=== PATIENT | female | born 1990 | race American Indian/Alaskan Native ===

== ENCOUNTER 2023-10-24 17:09 | Inpatient (IN) ==
[2023-10-24 18:50] LABS: Hematocrit 38.5 % (35-45); Hemoglobin 11.9 g/dL (11.5-14.3); Mean Corpuscular Hemoglobin 22.6 pg (27-33); Mean Corpuscular Hgb Conc 30.9 g/dL (31-36); Mean Corpuscular Volume 73.4 fL (80-97); Mean Platelet Volume 6.9 fL (7.5-11.2); Platelet Count 380 10^3/uL (150-450); Red Blood Count 5.25 10^6/uL (3.63-4.92); Red Cell Distribution Width 26.7 % (12-17); White Blood Count 9.6 10^3/uL (3.8-11.8)
[2023-10-24 19:10] LABS: ABS Basophils 0.1 10^3/uL (0.0-0.1); ABS Eosinophils 0.1 10^3/uL (0.0-0.5); ABS Lymphocytes 2.3 10^3/uL (1.0-4.8); ABS Monocytes 0.4 10^3/uL (0.0-0.9); ABS Neutrophils 6.7 10^3/uL (1.5-7.6); ABS Nucleated RBC 0.01 10^3/ul; Anisocytosis 2+; Eosinophil % 0.6 %; Hypochromasia 1+; Lymphocyte % 24.2 %; Microcytosis 2+; Nucleated Red Blood Cells % 0.1 %/100WBC (0.0-0.8); Tear Drop Cells 1+
[2023-10-24 19:13] LABS: ALT 22 U/L (7-52); AST 22 U/L (13-39); Acetaminophen < 15 mcg/mL; Albumin 4.5 g/dL (3.2-5.2); Alcohol, S < 13 mg/dL (<13); Alkaline Phosphatase 73 U/L (35-149); Anion Gap 11 mmol/L (2-16); Blood Urea Nitrogen 9 mg/dL (6-24); CO2 Carbon Dioxide 22 mmol/L (22-32); Calcium 9.6 mg/dL (8.6-10.3); Chloride 98 mmol/L (101-111); Creatinine, Serum 0.89 mg/dL (0.51-0.95); Globulin 4.3 g/dL (2-4); Glucose 80 mg/dL (70-100); Potassium 3.8 mmol/L (3.5-5.0); Salicylate < 2.50 mg/dL (<30); Sodium 131 mmol/L (135-145); Total Bilirubin 0.9 mg/dL (0.2-1.0); Total Protein 8.8 g/dL (6.4-8.9); eGFR CKD-EPI 86.7 (>60)
[2023-10-24 19:20] LABS: HCG Pregnancy < 0.60 mIU/mL
[2023-10-24 19:28] LABS: TSH Ultra Thyroid Stim Horm 4.05 mcIU/mL (0.34-5.60)
[2023-10-24 19:57] LABS: Urine Appearance Clear; Urine Bilirubin Negative (Negative); Urine Blood Negative (Negative); Urine Color Colorless; Urine Glucose Negative (Negative); Urine Ketones Negative (Negative); Urine Nitrite Negative (Negative); Urine Protein Negative (Negative); Urine Specific Gravity 1.001 (1.002-1.030); Urine Urobilinogen Negative (Negative); Urine pH 6.5 (5.0-8.0)
[2023-10-24 20:17] LABS: Urine Benzodiazepine Screen None Detected (None Detect); Urine Cannabinoids Screen None Detected (None Detect); Urine Opiates Screen None Detected (None Detect)
[2023-10-24] MEDS ORDERED: Al Hydrox/Mg Hydrox/Simet LIQ 30 ML UDC PO PRN (22:37)
[2023-10-25 07:45] LABS: HDL Cholesterol 66.9 mg/dL
[2023-10-25] MEDS ORDERED: OLANZapine 5 mg TAB *ODT PO PRN (13:33)
[2023-10-25] MEDS: Vitamin THERAPEUTIC TAB PO SCH (14:46)
[2023-10-26] MEDS: Albuterol HFA INHALER 8 gm MDI INH PRN (06:16)
[2023-11-01] MEDS: risperiDONE ER SUBCUT (NF) 100 MG/0.28 ML SYRINGE SUBCUT ONE (17:43)
[2023-11-03 10:12] VITALS: BP 124/90
== END 2023-11-03 13:00 | disposition home or self-care (01) | DRG 885 ==
LOC: ED 17:09 → BSU 22:13
PROVIDERS: ADMIT Student in an Organized Health Care Education/Training Program; ATTEND Student in an Organized Health Care Education/Training Program